=== PATIENT | female | born 1940 | race Caucasian/White ===

== ENCOUNTER → 2016-10-23 | Outpatient (CLI) | payer MEDICARE, OTHER ==
[~2016-10-23] MED LIST: ALBU8.5H5 INH; AMOX1TAB61 PO; BUDE10.2 INH; CALC-545 PO; CHOL20002 PO; DOCU-30 PO; DOXY100T PO; FAMO-79 PO; FLUO10CA7 PO; FURO-93 PO; LIDO700A5 TD; METF500T4 PO; METH500T97 PO; OMEP10CA4 PO; ONDA4TAB10 PO; POTA20PA PO; PRED10TA14 PO; SIMV20TA3 PO; TRAM-28 PO
[2016-10-23 13:05] LABS: PATH.CAST-FLAG NOT PRESENT; SPERM-FLAG NOT PRESENT; SRC-FLAG NOT PRESENT; XTAL-FLAG NOT PRESENT; YLC-FLAG NOT PRESENT
[2016-10-23 13:16] LABS: BLOOD UREA NITROGEN 20 mg/dL (7-18)
[2016-10-23 13:19] LABS: ASPARTATE AMINO TRANSFERASE 17 U/L (15-37)
== END | disposition home or self-care (01) ==
LOC: CFH 09:05
PROVIDERS: ATTEND Nurse Practitioner Primary Care
DX: M47.896 Other spondylosis, lumbar region (principal); M25.78 Osteophyte, vertebrae; M40.46 Postural lordosis, lumbar region
CPT/HCPCS: 36415; 72072; 72100; 80053; 81001; 82306; 85025; 87086

== ENCOUNTER → 2016-11-12 | Outpatient (CLI) | payer MEDICARE, OTHER | END | disposition home or self-care (01) | LOC: CFH 11:38 | PROVIDERS: ATTEND Nurse Practitioner Primary Care | DX: N39.0 Urinary tract infection, site not specified (principal) | CPT/HCPCS: 81003 ==

== ENCOUNTER → 2016-12-27 | Outpatient (CLI) | payer MEDICARE, OTHER | END | disposition home or self-care (01) | LOC: RAD 11:35 | PROVIDERS: ATTEND Nurse Practitioner Primary Care | DX: Z12.31 Encounter for screening mammogram for malignant neoplasm of breast (principal); M51.04 Intervertebral disc disorders with myelopathy, thoracic region; M43.8X4 Other specified deforming dorsopathies, thoracic region; M54.5 Low back pain; J92.9 Pleural plaque without asbestos | CPT/HCPCS: 72072; 72110; G0202 ==

== ENCOUNTER → 2017-02-21 | Outpatient (CLI) | payer MEDICARE, OTHER ==
[~2017-02-21] MED LIST changes: +DOCU-131 PO; -DOCU-30 PO; -TRAM-28 PO; +TRAM-47 PO
== END | disposition home or self-care (01) ==
LOC: CFH 10:21
PROVIDERS: ATTEND Nurse Practitioner Primary Care
DX: Z13.820 Encounter for screening for osteoporosis (principal); N95.9 Unspecified menopausal and perimenopausal disorder; E78.2 Mixed hyperlipidemia; E55.9 Vitamin D deficiency, unspecified; Z79.899 Other long term (current) drug therapy
CPT/HCPCS: 77080

== ENCOUNTER → 2017-05-12 | Outpatient (CLI) | payer MEDICARE, OTHER ==
[2017-05-12 13:32] LABS: BLOOD UREA NITROGEN 21 mg/dL (7-18)
[2017-05-12 13:35] LABS: ASPARTATE AMINO TRANSFERASE 16 U/L (15-37)
== END | disposition home or self-care (01) ==
LOC: LAB 08:33
PROVIDERS: ATTEND Internal Medicine
DX: Z00.01 Encounter for general adult medical examination with abnormal findings (principal); E61.1 Iron deficiency; R31.0 Gross hematuria; E78.2 Mixed hyperlipidemia; E55.9 Vitamin D deficiency, unspecified; R53.83 Other fatigue; R09.02 Hypoxemia; D72.819 Decreased white blood cell count, unspecified; R91.8 Other nonspecific abnormal finding of lung field; E88.81 Metabolic syndrome and other insulin resistance; F06.31 Mood disorder due to known physiological condition with depressive features; R01.1 Cardiac murmur, unspecified; M54.40 Lumbago with sciatica, unspecified side; M54.6 Pain in thoracic spine; M62.81 Muscle weakness (generalized); Z79.899 Other long term (current) drug therapy
CPT/HCPCS: 36415; 80053; 81001; 87077; 87086

== ENCOUNTER → 2017-06-03 | Outpatient (CLI) | payer MEDICARE, OTHER | LOC: CFH 09:22 | PROVIDERS: ATTEND Nurse Practitioner Primary Care | DX: Z02.9 Encounter for administrative examinations, unspecified (principal) ==

== ENCOUNTER → 2017-08-04 | Outpatient (CLI) | payer MEDICARE, OTHER ==
[2017-08-04 12:36] LABS: ALBUMIN 3.7 g/dL (3.4-5.0); ANION GAP 10 mmol/L (5-15); CALCIUM 9.2 mg/dL (8.5-10.1); CHLORIDE 102 mmol/L (98-107)
[2017-08-04 12:40] LABS: ALANINE AMINOTRANSFERASE 20 U/L (12-78); ALKALINE PHOSPHATASE 84 U/L (45-117); BILIRUBIN,TOTAL 0.8 mg/dL (0.2-1.0); CREATININE 1.05 mg/dL (0.55-1.02); TOTAL PROTEIN 7.6 g/dL (6.4-8.2)
[2017-08-04 12:41] LABS: CHOL/HDL RATIO 3.3; CHOLESTEROL, TOTAL 208 mg/dL (140-239); HDL CHOL % 30 % (28-40); HDL CHOLESTEROL (DIRECT) 63 mg/dL (40-60); LDL CHOLESTEROL,CALCULATED 109 mg/dL (54-169); LDL/HDL RATIO 1.7 (0.5-3.0); TRIGLYCERIDES 181 mg/dL (50-200); VLDL CHOLESTEROL 36 mg/dL (0-25)
[2017-08-06 12:35] LABS: MICROSCOPIC NOT IND
[2017-08-06 12:38] LABS: CULTURE INDICATED? NO
== END ==
LOC: CFH 10:29
PROVIDERS: ATTEND Nurse Practitioner Primary Care
DX: E61.1 Iron deficiency (principal); R31.0 Gross hematuria; E78.2 Mixed hyperlipidemia; E55.9 Vitamin D deficiency, unspecified; R53.83 Other fatigue; E87.2 Acidosis; D72.819 Decreased white blood cell count, unspecified; R91.8 Other nonspecific abnormal finding of lung field; E88.81 Metabolic syndrome and other insulin resistance; F06.31 Mood disorder due to known physiological condition with depressive features; R01.1 Cardiac murmur, unspecified; M54.40 Lumbago with sciatica, unspecified side; M54.6 Pain in thoracic spine; M62.81 Muscle weakness (generalized); Z79.899 Other long term (current) drug therapy
CPT/HCPCS: 36415; 80053; 80061; 81003; 82043; 82306; 82570

== ENCOUNTER → 2018-02-23 | Outpatient (CLI) | payer MEDICARE, OTHER ==
[~2018-02-23] MED LIST changes: -CHOL20002 PO; +CHOL200085 PO; +LISI5TAB7 PO; +METF500T17 PO; -METF500T4 PO; -POTA20PA PO; +POTA20PA31 PO; +SULF1TAB24 PO
[2018-02-23 15:55] LABS: BASOPHILS # (AUTO) 0.02 x10^3/uL (0-0.1); BASOPHILS % (AUTO) 0 % (0-1); EOSINOPHILS # (AUTO) 0.18 x10^3/uL (0-0.4); EOSINOPHILS % (AUTO) 3 % (1-7); LYMPHOCYTES # (AUTO) 1.76 x10^3/uL (1-3.4); LYMPHOCYTES % (AUTO) 25 % (22-44); MD NO; MEAN CORPUSCULAR HEMOGLOBIN 31.8 pg (27.0-34.8); MEAN CORPUSCULAR HGB CONC 33.3 g/dL (32.4-35.8); MEAN CORPUSCULAR VOLUME 95.7 fL (80-100); MONOCYTES # (AUTO) 0.36 x10^3/uL (0.2-0.8); MONOCYTES % (AUTO) 5 % (2-9); NEUTROPHILS # (AUTO) 4.82 x10^3/uL (1.8-6.8); NEUTROPHILS % (AUTO) 68 % (42-75); PLATELET COUNT 274 x10^3/uL (130-400); RED BLOOD COUNT 4.18 x10^6/uL (3.82-5.3); RED CELL DISTRIBUTION WIDTH 14.8 % (9.6-15.2)
[2018-02-23 15:58] LABS: CALCIUM 9.5 mg/dL (8.5-10.1); CHLORIDE 106 mmol/L (98-107)
[2018-02-23 16:03] LABS: CULTURE INDICATED? YES; MICROSCOPIC INDICATED
[2018-02-23 16:09] LABS: ALANINE AMINOTRANSFERASE 22 U/L (12-78); ALBUMIN 3.4 g/dL (3.4-5.0); ALKALINE PHOSPHATASE 119 U/L (45-117); ANION GAP 13 mmol/L (5-15); BILIRUBIN,TOTAL 0.6 mg/dL (0.2-1.0); CHOL/HDL RATIO 4.2; CHOLESTEROL, TOTAL 200 mg/dL (140-239); CREATININE 0.95 mg/dL (0.55-1.02); FREE T4 (FREE THYROXINE) 1.25 ng/dL (0.76-1.46); HDL CHOL % 24 % (28-40); HDL CHOLESTEROL (DIRECT) 48 mg/dL (40-60); LDL CHOLESTEROL,CALCULATED 114 mg/dL (54-169); LDL/HDL RATIO 2.4 (0.5-3.0); TOTAL PROTEIN 7.6 g/dL (6.4-8.2); TRIGLYCERIDES 189 mg/dL (50-200); VLDL CHOLESTEROL 38 mg/dL (0-25)
[2018-02-23 16:28] LABS: HEMOGLOBIN A1C 6.2 % (4.2-6.3)
== END | disposition home or self-care (01) ==
LOC: CFH 11:26
PROVIDERS: ATTEND Nurse Practitioner Primary Care
DX: E78.2 Mixed hyperlipidemia (principal); J44.9 Chronic obstructive pulmonary disease, unspecified; E11.9 Type 2 diabetes mellitus without complications; E61.1 Iron deficiency; R31.0 Gross hematuria; E55.9 Vitamin D deficiency, unspecified; R53.83 Other fatigue; R09.02 Hypoxemia; R91.8 Other nonspecific abnormal finding of lung field; D72.819 Decreased white blood cell count, unspecified; E88.81 Metabolic syndrome and other insulin resistance; F06.31 Mood disorder due to known physiological condition with depressive features; R01.1 Cardiac murmur, unspecified; M54.40 Lumbago with sciatica, unspecified side; M54.6 Pain in thoracic spine; M62.81 Muscle weakness (generalized); R79.9 Abnormal finding of blood chemistry, unspecified; Z79.899 Other long term (current) drug therapy
CPT/HCPCS: 36415; 80053; 80061; 81001; 82306; 83036; 84439; 84443; 84480; 85025; 87086

== ENCOUNTER 2018-03-04 11:27 | Inpatient (IN) | payer MEDICARE, OTHER ==
[~2018-03-04] VITALS: Ht 162.6 cm; Wt 82.5 kg
[~2018-03-04 11:27] MED LIST changes: -LISI5TAB7 PO; -SULF1TAB24 PO
[2018-03-04] MEDS ORDERED: SODIUM CHLORIDE FLUSH 10ML SYR IVF ONE (12:00)
[2018-03-04] MEDS ORDERED: SODIUM CHLORIDE 0.9% 1,000ML IVBOLUS ONE ×2 (12:00→13:00)
[2018-03-04 12:03] LABS: BASOPHILS # (AUTO) 0.05 x10^3/uL (0-0.1); BASOPHILS % (AUTO) 1 % (0-1); EOSINOPHILS # (AUTO) 0.18 x10^3/uL (0-0.4); EOSINOPHILS % (AUTO) 2 % (1-7); LYMPHOCYTES # (AUTO) 3.69 x10^3/uL (1-3.4); LYMPHOCYTES % (AUTO) 38 % (22-44); MD NO; MEAN CORPUSCULAR HEMOGLOBIN 31.4 pg (27.0-34.8); MEAN CORPUSCULAR HGB CONC 33.1 g/dL (32.4-35.8); MEAN CORPUSCULAR VOLUME 95.1 fL (80-100); MEAN PLATELET VOLUME 7.5 fL (7.4-10.4); MONOCYTES # (AUTO) 0.14 x10^3/uL (0.2-0.8); MONOCYTES % (AUTO) 1 % (2-9); NEUTROPHILS # (AUTO) 5.74 x10^3/uL (1.8-6.8); NEUTROPHILS % (AUTO) 59 % (42-75); PLATELET COUNT 267 x10^3/uL (130-400); RED CELL DISTRIBUTION WIDTH 15.1 % (9.6-15.2)
[2018-03-04] MEDS ORDERED: LISI5TAB7 PO (12:12)
[2018-03-04] MEDS ORDERED: FURO-93 PO (12:12)
[2018-03-04 12:15] LABS: ALANINE AMINOTRANSFERASE 20 U/L (12-78); ALBUMIN 3.3 g/dL (3.4-5.0); ANION GAP 17 mmol/L (5-15); CALCIUM 8.9 mg/dL (8.5-10.1); CHLORIDE 103 mmol/L (98-107); CREATININE 1.28 mg/dL (0.55-1.02); PROTHROMBIN TIME 10.3 Seconds (9.6-11.5)
[2018-03-04 12:19] LABS: ALKALINE PHOSPHATASE 114 U/L (45-117); BILIRUBIN,TOTAL 0.7 mg/dL (0.2-1.0); TOTAL PROTEIN 7.6 g/dL (6.4-8.2); TROPONIN I < 0.015 ng/mL (0.000-0.045)
[2018-03-04 12:41] LABS: PH, VENOUS 7.321 pH (7.320-7.420)
[2018-03-04 12:42] LABS: O2 FLOW 3.5 L/min
[2018-03-04] MEDS ORDERED: ONDANSETRON 2MG/ML, 2ML IVPush ONE (13:00)
[2018-03-04] MEDS ORDERED: ONDANSETRON 2MG/ML, 2ML ONE (13:03)
[2018-03-04 13:27] LABS: MICROSCOPIC INDICATED
[2018-03-04] MEDS ORDERED: SODIUM CHLORIDE 0.9% 1,000 ML IV ONE (13:43)
[2018-03-04 13:50] LABS: CULTURE INDICATED? NO
[2018-03-04 13:57] LABS: FREE T4 (FREE THYROXINE) 1.31 ng/dL (0.76-1.46); THYROID STIMULATING HORMONE 6.28 mIU/L (0.358-3.740)
[2018-03-04] MEDS ORDERED: SULF1TAB24 PO (14:58)
[2018-03-04] MEDS ORDERED: SODIUM CHLORIDE FLUSH 10ML SYR IVF PRN (16:00)
[2018-03-04] MEDS ORDERED: hydrALAzine 20 MG/ML, 1ML IVPush PRN (16:30)
[2018-03-04] MEDS ORDERED: ACETAMINOPHEN 325 MG TABLET PO PRN (16:30)
[2018-03-04] MEDS ORDERED: DOCUSATE 100 MG CAPSULE PO PRN (16:30)
[2018-03-04] MEDS ORDERED: POLYETHYLENE GLYCOL 17 GM PACKET PO PRN (16:30)
[2018-03-04] MEDS ORDERED: BISACODYL 10 MG SUPP PR PRN (16:30)
[2018-03-04 16:51] LABS: HEMOGRAM NOTE RECHECKED; MEAN CORPUSCULAR HEMOGLOBIN 32.1 pg (27.0-34.8); MEAN CORPUSCULAR HGB CONC 33.8 g/dL (32.4-35.8); MEAN CORPUSCULAR VOLUME 94.9 fL (80-100); MEAN PLATELET VOLUME 7.5 fL (7.4-10.4); PLATELET COUNT 190 x10^3/uL (130-400); RED BLOOD COUNT 3.44 x10^6/uL (3.82-5.3); RED CELL DISTRIBUTION WIDTH 14.5 % (9.6-15.2)
[2018-03-04] MEDS ORDERED: GLUCAGON 1 MG IM PRN (17:00)
[2018-03-04] MEDS ORDERED: ALBUTEROL SULFATE 2.5 MG/3 ML NPPB PRN ×3 (17:00→21:30)
[2018-03-04] MEDS: CALCIUM/VITAMIN D3 250-125 TABLET PO SCH ×2 (17:00→21:53)
[2018-03-04] MEDS ORDERED: DEXTROSE 4 GM TAB.CHEW PO PRN (17:00)
[2018-03-04] MEDS ORDERED: DEXTROSE 50%, 50ML SYRINGE IVPush PRN (17:00)
[2018-03-04 17:05] LABS: MD YES
[2018-03-04 17:07] LABS: BAND#(MANUAL) 0.19 x10^3/uL; BANDS%(MANUAL) 2 % (0-7); LYMPH#(MANUAL) 0.67 x10^3/uL (1-3.4); LYMPHS% (MANUAL) 7 % (22-44); MONOS#(MANUAL) 0.67 x10^3/uL (0.3-2.7); MONOS% (MANUAL) 7 % (2-9); SEG#(MANUAL) 8.06 x10^3/uL (1.8-6.8); SEGS% (MANUAL) 84 % (42-75)
[2018-03-04 17:08] LABS: <PLATELET ESTIMATE> ADEQUATE; <PLT MORPHOLOGY> NORMAL PLT MORPH; <RBC MORPHOLOGY> NORMAL
[2018-03-04 17:19] LABS: HEMOGLOBIN A1C 5.8 % (4.2-6.3)
[2018-03-04 17:28] LABS: TROPONIN I 0.411 ng/mL (0.000-0.045)
[2018-03-04 17:58] VITALS: BP 93/56
[2018-03-04] MEDS: SODIUM CHLORIDE 0.9% 1,000 ML IV SCH ×2 (18:04→22:54)
[2018-03-04 19:08] VITALS: BP 102/59
[2018-03-04] MEDS ORDERED: CEFTRIAXONE 1,000 MG in SODIUM CHLORIDE 0.9% 50 ML IV SCH (19:30)
[2018-03-04] MEDS: INSULIN LISPRO 100 UNITS/ML, PEN SQ-INSULIN SCH (21:00)
[2018-03-04] MEDS ORDERED: SULFAMETH./TRIMETHOPRIM DS 800MG/160MG TABLET PO SCH (21:00)
[2018-03-04] MEDS: DOXYCYCLINE 100 MG in DEXTROSE 5% 250 ML IV SCH (22:53)
[2018-03-04] MEDS: SODIUM CHLORIDE FLUSH 10ML SYR IVF SCH (22:53)
[2018-03-05 01:27] VITALS: BP 91/59
[2018-03-05] MEDS: SODIUM CHLORIDE 0.9% 1,000 ML IV SCH ×4 (02:14→23:18)
[2018-03-05 06:01] LABS: ALANINE AMINOTRANSFERASE 14 U/L (12-78); ALBUMIN 2.5 g/dL (3.4-5.0); ANION GAP 8 mmol/L (5-15); CALCIUM 7.7 mg/dL (8.5-10.1); CHLORIDE 112 mmol/L (98-107); CREATININE 0.83 mg/dL (0.55-1.02)
[2018-03-05 06:03] LABS: ALKALINE PHOSPHATASE 77 U/L (45-117); BILIRUBIN,TOTAL 0.4 mg/dL (0.2-1.0); TOTAL PROTEIN 5.6 g/dL (6.4-8.2)
[2018-03-05] MEDS ORDERED: POTASSIUM CHLORIDE 40 MEQ in SODIUM CHLORIDE 0.9% 500 ML IV ONE (07:00)
[2018-03-05] MEDS: INSULIN LISPRO 100 UNITS/ML, PEN SQ-INSULIN SCH ×4 (07:00→20:26)
[2018-03-05 07:59] VITALS: BP 93/51
[2018-03-05] MEDS: CALCIUM/VITAMIN D3 250-125 TABLET PO SCH ×3 (09:09→20:22)
[2018-03-05] MEDS: SODIUM CHLORIDE FLUSH 10ML SYR IVF SCH ×2 (09:09→20:21)
[2018-03-05] MEDS: DOXYCYCLINE 100 MG in DEXTROSE 5% 250 ML IV SCH (09:09)
[2018-03-05] MEDS: CHOLECALCIFEROL 400 UNITS TABLET PO SCH (09:09)
[2018-03-05 10:14] VITALS: BP 94/46
[2018-03-05 12:34] VITALS: BP 101/50
[2018-03-05] MEDS ORDERED: AZITHROMYCIN 500 MG in DEXTROSE 5% 250 ML IV SCH (13:00)
[2018-03-05 14:01] LABS: BASOPHILS # (AUTO) 0.02 x10^3/uL (0-0.1); BASOPHILS % (AUTO) 0 % (0-1); EOSINOPHILS # (AUTO) 0.18 x10^3/uL (0-0.4); EOSINOPHILS % (AUTO) 3 % (1-7); LYMPHOCYTES # (AUTO) 1.15 x10^3/uL (1-3.4); LYMPHOCYTES % (AUTO) 19 % (22-44); MD NO; MEAN CORPUSCULAR HEMOGLOBIN 31.6 pg (27.0-34.8); MEAN CORPUSCULAR HGB CONC 33.3 g/dL (32.4-35.8); MEAN PLATELET VOLUME 7.4 fL (7.4-10.4); MONOCYTES # (AUTO) 0.28 x10^3/uL (0.2-0.8); MONOCYTES % (AUTO) 5 % (2-9); NEUTROPHILS # (AUTO) 4.52 x10^3/uL (1.8-6.8); NEUTROPHILS % (AUTO) 74 % (42-75); PLATELET COUNT 178 x10^3/uL (130-400); RED BLOOD COUNT 3.21 x10^6/uL (3.82-5.3); RED CELL DISTRIBUTION WIDTH 15.2 % (9.6-15.2)
[2018-03-05] MEDS: HEPARIN 5,000 UNITS/ML, 1ML SQ SCH ×2 (17:05→23:15)
[2018-03-05 17:10] VITALS: BP 96/56
[2018-03-05 19:03] VITALS: BP 109/65
[2018-03-05] MEDS ORDERED: CEFTRIAXONE PMX 1GM/50ML 50 ML IV SCH (19:30)
[2018-03-05] MEDS: ATORVASTATIN 40 MG TABLET PO SCH (20:21)
[2018-03-05] MEDS: CEFTRIAXONE PMX 1GM/50ML 50 ML IV SCH (20:21)
[2018-03-06 00:23] VITALS: BP 96/60
[2018-03-06] MEDS: SODIUM CHLORIDE 0.9% 1,000 ML IV SCH (05:14)
[2018-03-06 06:44] LABS: BASOPHILS # (AUTO) 0.01 x10^3/uL (0-0.1); BASOPHILS % (AUTO) 0 % (0-1); EOSINOPHILS # (AUTO) 0.01 x10^3/uL (0-0.4); EOSINOPHILS % (AUTO) 0 % (1-7); LYMPHOCYTES # (AUTO) 0.49 x10^3/uL (1-3.4); LYMPHOCYTES % (AUTO) 13 % (22-44); MD NO; MEAN CORPUSCULAR HEMOGLOBIN 32.4 pg (27.0-34.8); MEAN CORPUSCULAR HGB CONC 33.9 g/dL (32.4-35.8); MEAN CORPUSCULAR VOLUME 95.6 fL (80-100); MEAN PLATELET VOLUME 7.5 fL (7.4-10.4); MONOCYTES # (AUTO) 0.06 x10^3/uL (0.2-0.8); MONOCYTES % (AUTO) 2 % (2-9); NEUTROPHILS % (AUTO) 84 % (42-75); PLATELET COUNT 138 x10^3/uL (130-400); RED BLOOD COUNT 2.82 x10^6/uL (3.82-5.3); RED CELL DISTRIBUTION WIDTH 15.1 % (9.6-15.2)
[2018-03-06 06:52] LABS: ALBUMIN 2.3 g/dL (3.4-5.0); ANION GAP 10 mmol/L (5-15); CALCIUM 8.2 mg/dL (8.5-10.1); CHLORIDE 115 mmol/L (98-107)
[2018-03-06] MEDS: INSULIN LISPRO 100 UNITS/ML, PEN SQ-INSULIN SCH ×4 (07:00→20:48)
[2018-03-06 07:15] VITALS: BP 101/63
[2018-03-06] MEDS: CALCIUM/VITAMIN D3 250-125 TABLET PO SCH ×3 (08:11→20:46)
[2018-03-06] MEDS: CHOLECALCIFEROL 400 UNITS TABLET PO SCH (08:11)
[2018-03-06] MEDS: HEPARIN 5,000 UNITS/ML, 1ML SQ SCH ×3 (08:11→23:37)
[2018-03-06] MEDS: SODIUM CHLORIDE FLUSH 10ML SYR IVF SCH ×2 (09:00→20:47)
[2018-03-06] MEDS ORDERED: SODIUM CHLORIDE 0.45% 1,000 ML IV SCH (10:00)
[2018-03-06 13:00] VITALS: BP 94/54
[2018-03-06] MEDS: AZITHROMYCIN 500 MG in SODIUM CHLORIDE 0.9% 250 ML IV SCH (13:06)
[2018-03-06] MEDS ORDERED: OMNIPAQUE 350 MG/ML, 100ML BOTTLE ONE (18:00)
[2018-03-06 18:42] VITALS: BP 94/53
[2018-03-06] MEDS: ATORVASTATIN 40 MG TABLET PO SCH (20:46)
[2018-03-06] MEDS: CEFTRIAXONE PMX 1GM/50ML 50 ML IV SCH (20:46)
[2018-03-06 20:59] VITALS: BP 115/68
[2018-03-07 01:54] VITALS: BP 97/59
[2018-03-07 06:13] LABS: BASOPHILS # (AUTO) 0.02 x10^3/uL (0-0.1); BASOPHILS % (AUTO) 1 % (0-1); EOSINOPHILS % (AUTO) 4 % (1-7); LYMPHOCYTES % (AUTO) 26 % (22-44); MD NO; MEAN CORPUSCULAR HEMOGLOBIN 32.2 pg (27.0-34.8); MEAN CORPUSCULAR HGB CONC 33.4 g/dL (32.4-35.8); MEAN CORPUSCULAR VOLUME 96.3 fL (80-100); MEAN PLATELET VOLUME 7.7 fL (7.4-10.4); MONOCYTES # (AUTO) 0.37 x10^3/uL (0.2-0.8); MONOCYTES % (AUTO) 8 % (2-9); NEUTROPHILS # (AUTO) 3.03 x10^3/uL (1.8-6.8); NEUTROPHILS % (AUTO) 62 % (42-75); PLATELET COUNT 141 x10^3/uL (130-400); RED BLOOD COUNT 2.86 x10^6/uL (3.82-5.3); RED CELL DISTRIBUTION WIDTH 15.2 % (9.6-15.2)
[2018-03-07 06:18] LABS: ALBUMIN 2.3 g/dL (3.4-5.0); ANION GAP 7 mmol/L (5-15); CALCIUM 8.6 mg/dL (8.5-10.1); CHLORIDE 114 mmol/L (98-107); CREATININE 0.68 mg/dL (0.55-1.02)
[2018-03-07] MEDS: INSULIN LISPRO 100 UNITS/ML, PEN SQ-INSULIN SCH ×5 (07:00→20:16)
[2018-03-07 08:12] LABS: TROPONIN I 0.047 ng/mL (0.000-0.045)
[2018-03-07] MEDS: HEPARIN 5,000 UNITS/ML, 1ML SQ SCH ×3 (08:53→23:40)
[2018-03-07] MEDS: CHOLECALCIFEROL 400 UNITS TABLET PO SCH (08:53)
[2018-03-07] MEDS: methylPREDNISolone SOD SUCC 125 MG/2 ML IVPush SCH ×3 (08:53→23:40)
[2018-03-07] MEDS: CALCIUM/VITAMIN D3 250-125 TABLET PO SCH ×3 (08:53→20:11)
[2018-03-07] MEDS: SODIUM CHLORIDE FLUSH 10ML SYR IVF SCH ×2 (09:00→20:03)
[2018-03-07 09:05] VITALS: BP 107/64
[2018-03-07] MEDS: SODIUM CHLORIDE 0.45% 1,000 ML IV SCH ×2 (10:00→20:00)
[2018-03-07] MEDS ORDERED: REGADENOSON 0.4 MG/5 ML SYRINGE ONE (10:24)
[2018-03-07 12:15] VITALS: BP 118/63
[2018-03-07] MEDS: AZITHROMYCIN 500 MG in SODIUM CHLORIDE 0.9% 250 ML IV SCH (13:39)
[2018-03-07 19:18] VITALS: BP 108/68
[2018-03-07] MEDS: ATORVASTATIN 40 MG TABLET PO SCH (20:11)
[2018-03-07] MEDS: CEFTRIAXONE PMX 1GM/50ML 50 ML IV SCH (20:12)
[2018-03-08 00:16] VITALS: BP 120/79
[2018-03-08 05:26] LABS: BASOPHILS # (AUTO) 0.01 x10^3/uL (0-0.1); BASOPHILS % (AUTO) 0 % (0-1); EOSINOPHILS % (AUTO) 0 % (1-7); LYMPHOCYTES # (AUTO) 0.37 x10^3/uL (1-3.4); LYMPHOCYTES % (AUTO) 10 % (22-44); MD NO; MEAN CORPUSCULAR HEMOGLOBIN 32.1 pg (27.0-34.8); MEAN CORPUSCULAR HGB CONC 33.6 g/dL (32.4-35.8); MEAN CORPUSCULAR VOLUME 95.7 fL (80-100); MONOCYTES # (AUTO) 0.04 x10^3/uL (0.2-0.8); MONOCYTES % (AUTO) 1 % (2-9); NEUTROPHILS # (AUTO) 3.43 x10^3/uL (1.8-6.8); NEUTROPHILS % (AUTO) 89 % (42-75); PLATELET COUNT 158 x10^3/uL (130-400); RED BLOOD COUNT 3.02 x10^6/uL (3.82-5.3); RED CELL DISTRIBUTION WIDTH 14.8 % (9.6-15.2)
[2018-03-08 05:30] LABS: ALBUMIN 2.4 g/dL (3.4-5.0); ANION GAP 8 mmol/L (5-15); CALCIUM 8.7 mg/dL (8.5-10.1); CHLORIDE 112 mmol/L (98-107); CREATININE 0.76 mg/dL (0.55-1.02)
[2018-03-08] MEDS: SODIUM CHLORIDE 0.45% 1,000 ML IV SCH (06:00)
[2018-03-08 06:57] VITALS: BP 118/61
[2018-03-08] MEDS: ASPIRIN 81 MG TABLET EC PO SCH (08:11)
[2018-03-08] MEDS: CHOLECALCIFEROL 400 UNITS TABLET PO SCH (08:11)
[2018-03-08] MEDS: HEPARIN 5,000 UNITS/ML, 1ML SQ SCH ×2 (08:12→17:08)
[2018-03-08] MEDS: CALCIUM/VITAMIN D3 250-125 TABLET PO SCH ×3 (08:12→20:38)
[2018-03-08] MEDS: INSULIN LISPRO 100 UNITS/ML, PEN SQ-INSULIN SCH ×5 (08:13→21:02)
[2018-03-08] MEDS: SODIUM CHLORIDE FLUSH 10ML SYR IVF SCH ×2 (09:00→20:37)
[2018-03-08] MEDS: AZITHROMYCIN 500 MG in SODIUM CHLORIDE 0.9% 250 ML IV SCH (12:39)
[2018-03-08 14:00] VITALS: BP 114/72
[2018-03-08] MEDS: ATORVASTATIN 40 MG TABLET PO SCH (20:38)
[2018-03-08] MEDS: CEFTRIAXONE PMX 1GM/50ML 50 ML IV SCH (20:38)
[2018-03-08 20:40] VITALS: BP 109/71
[2018-03-09 01:04] VITALS: BP 105/64
[2018-03-09] MEDS: HEPARIN 5,000 UNITS/ML, 1ML SQ SCH ×2 (01:09→09:05)
[2018-03-09 06:52] LABS: BASOPHILS # (AUTO) 0.01 x10^3/uL (0-0.1); BASOPHILS % (AUTO) 0 % (0-1); EOSINOPHILS % (AUTO) 0 % (1-7); LYMPHOCYTES # (AUTO) 0.99 x10^3/uL (1-3.4); LYMPHOCYTES % (AUTO) 14 % (22-44); MD NO; MEAN CORPUSCULAR HEMOGLOBIN 32.2 pg (27.0-34.8); MEAN CORPUSCULAR HGB CONC 33.5 g/dL (32.4-35.8); MEAN CORPUSCULAR VOLUME 96.1 fL (80-100); MEAN PLATELET VOLUME 7.8 fL (7.4-10.4); MONOCYTES # (AUTO) 0.56 x10^3/uL (0.2-0.8); MONOCYTES % (AUTO) 8 % (2-9); NEUTROPHILS # (AUTO) 5.36 x10^3/uL (1.8-6.8); NEUTROPHILS % (AUTO) 78 % (42-75); PLATELET COUNT 174 x10^3/uL (130-400); RED BLOOD COUNT 2.84 x10^6/uL (3.82-5.3); RED CELL DISTRIBUTION WIDTH 15.4 % (9.6-15.2)
[2018-03-09] MEDS: INSULIN LISPRO 100 UNITS/ML, PEN SQ-INSULIN SCH ×2 (07:00→10:58)
[2018-03-09 07:04] LABS: ALBUMIN 2.4 g/dL (3.4-5.0); ANION GAP 7 mmol/L (5-15); CHLORIDE 112 mmol/L (98-107); CREATININE 0.64 mg/dL (0.55-1.02)
[2018-03-09 07:20] VITALS: BP 117/72
[2018-03-09] MEDS: SODIUM CHLORIDE FLUSH 10ML SYR IVF SCH (09:00)
[2018-03-09] MEDS: CHOLECALCIFEROL 400 UNITS TABLET PO SCH (09:05)
[2018-03-09] MEDS: CALCIUM/VITAMIN D3 250-125 TABLET PO SCH (09:06)
[2018-03-09] MEDS: ASPIRIN 81 MG TABLET EC PO SCH (09:06)
[2018-03-09 13:00] VITALS: BP 111/67
[2018-03-09] MEDS: AZITHROMYCIN 500 MG in SODIUM CHLORIDE 0.9% 250 ML IV SCH (13:02)
[2018-03-09] MEDS ORDERED: AZIT500T5 PO (14:11)
[2018-03-09] MEDS ORDERED: ATOR40TA78 PO (14:11)
[2018-03-09] MEDS ORDERED: PRED5TAB PO (14:11)
[2018-03-09] MEDS ORDERED: CEFD300C37 PO (14:11)
== END 2018-03-09 16:29 | DRG 682 ==
LOC: ED 11:56 → EDIP 15:55 → 5SO 17:36
PROVIDERS: ADMIT Hospitalist; ATTEND Family Medicine
PROC: 02HV33Z Insertion of Infusion Device into Superior Vena Cava, Percutaneous Approach (ICD-10-PCS; principal; 2018-03-04)
PROC: B548ZZA Ultrasonography of Superior Vena Cava, Guidance (ICD-10-PCS; 2018-03-04)
PROC: 0T9B70Z Drainage of Bladder with Drainage Device, Via Natural or Artificial Opening (ICD-10-PCS; 2018-03-04)
DX: N17.9 Acute kidney failure, unspecified (principal); J96.21 Acute and chronic respiratory failure with hypoxia; J84.9 Interstitial pulmonary disease, unspecified; E87.2 Acidosis; I24.8 Other forms of acute ischemic heart disease; I95.2 Hypotension due to drugs; T38.0X5A Adverse effect of glucocorticoids and synthetic analogues, initial encounter; D64.9 Anemia, unspecified; E11.9 Type 2 diabetes mellitus without complications; E86.0 Dehydration; G47.33 Obstructive sleep apnea (adult) (pediatric); I65.23 Occlusion and stenosis of bilateral carotid arteries; J44.9 Chronic obstructive pulmonary disease, unspecified; I10 Essential (primary) hypertension; R53.81 Other malaise; G31.9 Degenerative disease of nervous system, unspecified; R91.1 Solitary pulmonary nodule; G89.29 Other chronic pain; M54.9 Dorsalgia, unspecified; K21.9 Gastro-esophageal reflux disease without esophagitis; M81.0 Age-related osteoporosis without current pathological fracture; Z66 Do not resuscitate; Z79.52 Long term (current) use of systemic steroids; Z82.49 Family history of ischemic heart disease and other diseases of the circulatory system; Z87.440 Personal history of urinary (tract) infections; Z90.49 Acquired absence of other specified parts of digestive tract; Z98.51 Tubal ligation status; Z90.89 Acquired absence of other organs; Y92.89 Other specified places as the place of occurrence of the external cause; Z79.84 Long term (current) use of oral hypoglycemic drugs; I95.89 Other hypotension
CPT/HCPCS: 36415; 36556; 70450; 70551; 71045; 71250; 71275; 78452; 80048; 80053; 81001; 82040; 82140; 82533; 82803; 82962; 83036; 83605; 83735; 84100; 84439; 84443; 84484; 85025; 85610; 85730; 87040; 93005; 93017; 93306; 93880; 94640; 96361; 96374; 99291; G0378; J0456; J0696; J1644; J2405; J2785; J3480; J7060; J7613; Q9967; A9502; C9898; J1815; J2930; J7030; J7040; J7050; J7512

== ENCOUNTER 2018-03-25 08:17 | Emergency (ER) | payer MEDICARE, OTHER ==
[~2018-03-25] VITALS: Ht 167.6 cm; Wt 55.0 kg
[~2018-03-25 08:17] MED LIST changes: +ATOR40TA78 PO; +AZIT500T5 PO; +CEFD300C37 PO; +LISI5TAB7 PO; +PRED5TAB PO; +SULF1TAB24 PO
[2018-03-25 09:44] VITALS: BP 126/82
== END 2018-03-25 11:44 | disposition home or self-care (01) ==
LOC: ED 09:00
DX: S82.65XA Nondisplaced fracture of lateral malleolus of left fibula, initial encounter for closed fracture (principal); I10 Essential (primary) hypertension; E11.9 Type 2 diabetes mellitus without complications; J44.9 Chronic obstructive pulmonary disease, unspecified; Z90.89 Acquired absence of other organs; Z88.6 Allergy status to analgesic agent; X50.1XXA Overexertion from prolonged static or awkward postures, initial encounter; Y93.89 Activity, other specified; Y92.129 Unspecified place in nursing home as the place of occurrence of the external cause; Y99.8 Other external cause status
CPT/HCPCS: 29515; 99284

== ENCOUNTER → 2018-07-10 | Outpatient (CLI) | payer MEDICARE, OTHER ==
[~2018-07-10] MED LIST changes: +CHOL20002 PO; -CHOL200085 PO
[2018-07-10 12:41] LABS: BASOPHILS # (AUTO) 0.01 x10^3/uL (0-0.1); BASOPHILS % (AUTO) 0 % (0-1); EOSINOPHILS # (AUTO) 0.49 x10^3/uL (0-0.4); EOSINOPHILS % (AUTO) 8 % (1-7); LYMPHOCYTES # (AUTO) 1.09 x10^3/uL (1-3.4); LYMPHOCYTES % (AUTO) 17 % (22-44); MD NO; MEAN CORPUSCULAR HEMOGLOBIN 31.6 pg (27.0-34.8); MEAN CORPUSCULAR HGB CONC 33.2 g/dL (32.4-35.8); MEAN CORPUSCULAR VOLUME 95.3 fL (80-100); MEAN PLATELET VOLUME 8.1 fL (7.4-10.4); MONOCYTES # (AUTO) 0.44 x10^3/uL (0.2-0.8); MONOCYTES % (AUTO) 7 % (2-9); NEUTROPHILS # (AUTO) 4.56 x10^3/uL (1.8-6.8); NEUTROPHILS % (AUTO) 69 % (42-75); PLATELET COUNT 206 x10^3/uL (130-400); RED BLOOD COUNT 4.04 x10^6/uL (3.82-5.3); RED CELL DISTRIBUTION WIDTH 15.5 % (9.6-15.2)
[2018-07-10 12:56] LABS: CULTURE INDICATED? YES; MICROSCOPIC INDICATED
[2018-07-10 13:31] LABS: CHLORIDE 107 mmol/L (98-107); CHOLESTEROL, TOTAL 132 mg/dL (140-239)
[2018-07-10 14:04] LABS: % IRON SATURATION 19 % (20-55); ALANINE AMINOTRANSFERASE 17 U/L (12-78); ALKALINE PHOSPHATASE 88 U/L (45-117); ANION GAP 7 mmol/L (5-15); BILIRUBIN,TOTAL 0.4 mg/dL (0.2-1.0); CHOL/HDL RATIO 2.8; CREATININE 0.82 mg/dL (0.55-1.02); HDL CHOL % 36 % (28-40); HDL CHOLESTEROL (DIRECT) 48 mg/dL (40-60); IRON LEVEL 56 mcg/dL (50-170); LDL CHOLESTEROL,CALCULATED 58 mg/dL (54-169); LDL/HDL RATIO 1.2 (0.5-3.0); TOTAL IRON BINDING CAPACITY 295 mcg/dL (250-450); TOTAL PROTEIN 7.3 g/dL (6.4-8.2); TRANSFERRIN 240 mg/dL (200-360); TRIGLYCERIDES 130 mg/dL (50-200); VLDL CHOLESTEROL 26 mg/dL (0-25)
== END | disposition home or self-care (01) ==
LOC: CFH 09:21
PROVIDERS: ATTEND Nurse Practitioner Primary Care
DX: E61.1 Iron deficiency (principal); E78.2 Mixed hyperlipidemia; E55.9 Vitamin D deficiency, unspecified; D72.819 Decreased white blood cell count, unspecified; R91.8 Other nonspecific abnormal finding of lung field; E88.81 Metabolic syndrome and other insulin resistance; F06.31 Mood disorder due to known physiological condition with depressive features; M54.40 Lumbago with sciatica, unspecified side; M54.6 Pain in thoracic spine; M62.81 Muscle weakness (generalized); R79.9 Abnormal finding of blood chemistry, unspecified; R01.1 Cardiac murmur, unspecified; Z79.899 Other long term (current) drug therapy
CPT/HCPCS: 36415; 80053; 80061; 81001; 82306; 82607; 82728; 83036; 83540; 83550; 84100; 84207; 84425; 84439; 84443; 84466; 84481; 85025; 87086

== ENCOUNTER 2018-08-13 13:17 | Inpatient (IN) | payer MEDICARE, OTHER ==
[~2018-08-13] VITALS: Ht 162.6 cm; Wt 74.2 kg
--- NOTE | 2018-08-13 13:40 | NUR ---
Pt BIB EMS from home in [place] for cough and increasing SOB. Per EMS pt has broken R ankle from last week. Seen at [place] at that time. Has mostly been bedbound the last week with increasing cough and SOB. Pt alert to name and location only. CMS intact x4. 95% on 4L NC, normally on 2L. Per EMS, pt was 89% on 2L. Nad at this time.
--- NOTE | 2018-08-13 13:57 | NUR ---
LABS/IV - US DELAY
[2018-08-13] MEDS ORDERED: SODIUM CHLORIDE FLUSH 10ML SYR IVF ONE (14:00)
[2018-08-13 14:18] LABS: BASOPHILS # (AUTO) 0.01 x10^3/uL (0-0.1); BASOPHILS % (AUTO) 0 % (0-1); EOSINOPHILS # (AUTO) 0.45 x10^3/uL (0-0.4); EOSINOPHILS % (AUTO) 6 % (1-7); LYMPHOCYTES # (AUTO) 1.48 x10^3/uL (1-3.4); LYMPHOCYTES % (AUTO) 20 % (22-44); MD NO; MEAN CORPUSCULAR HEMOGLOBIN 32.3 pg (27.0-34.8); MEAN CORPUSCULAR HGB CONC 32.9 g/dL (32.4-35.8); MEAN CORPUSCULAR VOLUME 98.1 fL (80-100); MEAN PLATELET VOLUME 7.2 fL (7.4-10.4); MONOCYTES # (AUTO) 0.53 x10^3/uL (0.2-0.8); MONOCYTES % (AUTO) 7 % (2-9); NEUTROPHILS # (AUTO) 4.81 x10^3/uL (1.8-6.8); NEUTROPHILS % (AUTO) 66 % (42-75); PLATELET COUNT 280 x10^3/uL (130-400); RED BLOOD COUNT 3.74 x10^6/uL (3.82-5.3); RED CELL DISTRIBUTION WIDTH 17.6 % (9.6-15.2)
[2018-08-13 14:26] LABS: INTERNATIONAL NORMALIZED RATIO 0.95 (0.93-1.1)
[2018-08-13 14:29] LABS: ALANINE AMINOTRANSFERASE 13 U/L (12-78); ALBUMIN 2.9 g/dL (3.4-5.0); ANION GAP 7 mmol/L (5-15); CALCIUM 8.6 mg/dL (8.5-10.1); CHLORIDE 107 mmol/L (98-107); CREATININE 1.07 mg/dL (0.55-1.02)
[2018-08-13 14:33] LABS: ALKALINE PHOSPHATASE 118 U/L (45-117); BILIRUBIN,TOTAL 0.4 mg/dL (0.2-1.0); TOTAL PROTEIN 7.3 g/dL (6.4-8.2)
[2018-08-13] MEDS ORDERED: SODIUM CHLORIDE FLUSH 10ML SYR IVF PRN (15:30)
--- NOTE | 2018-08-13 15:47 | NUR ---
Patient voided approximately 150mL concentrated, cloudy urine. Cleaned and repositioend for comfort.
[2018-08-13] MEDS ORDERED: KETOROLAC 30 MG/1 ML IV PRN (16:30)
[2018-08-13] MEDS ORDERED: ONDANSETRON 2MG/ML, 2ML IVPush PRN (16:30)
[2018-08-13] MEDS ORDERED: hydrALAzine 20 MG/ML, 1ML IVPush PRN (16:30)
[2018-08-13] MEDS ORDERED: LABETALOL 5MG/ML, 20ML IVPush PRN (16:30)
[2018-08-13] MEDS ORDERED: ZOLPIDEM 5MG TABLET PO PRN (16:30)
[2018-08-13] MEDS ORDERED: DOCUSATE 100 MG CAPSULE PO PRN (16:30)
[2018-08-13] MEDS ORDERED: POLYETHYLENE GLYCOL 17 GM PACKET PO PRN (16:30)
[2018-08-13] MEDS ORDERED: ONDANSETRON ODT 4 MG PO PRN (16:30)
[2018-08-13] MEDS ORDERED: GUAIFENESIN/DM 200-20MG, 10ML UDC PO PRN (16:30)
[2018-08-13] MEDS ORDERED: BISACODYL 10 MG SUPP PR PRN (16:30)
[2018-08-13 17:25] LABS: TROPONIN I < 0.015 ng/mL (0.000-0.045)
[2018-08-13 17:37] VITALS: BP 97/56
[2018-08-13 17:41] LABS: HEMOGLOBIN A1C 5.8 % (4.2-6.3)
[2018-08-13] MEDS: HEPARIN 5,000 UNITS/ML, 1ML SQ SCH (18:02)
[2018-08-13] MEDS: LACTATED RINGERS 1,000 ML IV SCH (18:03)
[2018-08-13] MEDS: methylPREDNISolone SOD SUCC 40 MG/ML IVPush SCH (18:03)
[2018-08-13 18:04] LABS: HCT (SEDRATE) 36.7 % (34.6-47.8)
[2018-08-13 20:33] VITALS: BP 126/74
[2018-08-13] MEDS: INSULIN LISPRO 100 UNITS/ML, PEN SQ-INSULIN SCH (21:05)
[2018-08-13 23:34] LABS: TROPONIN I < 0.015 ng/mL (0.000-0.045)
[2018-08-14] MEDS ORDERED: ALBUTEROL SULFATE 2.5 MG/3 ML NPPB PRN
[2018-08-14] MEDS: HEPARIN 5,000 UNITS/ML, 1ML SQ SCH ×3 (00:23→16:56)
[2018-08-14] MEDS: methylPREDNISolone SOD SUCC 40 MG/ML IVPush SCH ×4 (00:24→18:33)
[2018-08-14 01:39] VITALS: BP 128/71
[2018-08-14] MEDS: LACTATED RINGERS 1,000 ML IV SCH ×3 (02:20→21:30)
[2018-08-14 02:44] LABS: MICROSCOPIC NOT IND
[2018-08-14 02:48] LABS: CULTURE INDICATED? NO
[2018-08-14 05:25] LABS: ANION GAP 5 mmol/L (5-15); CALCIUM 8.9 mg/dL (8.5-10.1); CHLORIDE 109 mmol/L (98-107); CREATININE 0.85 mg/dL (0.55-1.02)
[2018-08-14 05:28] LABS: MEAN CORPUSCULAR HEMOGLOBIN 31.8 pg (27.0-34.8); MEAN CORPUSCULAR HGB CONC 32.6 g/dL (32.4-35.8); MEAN CORPUSCULAR VOLUME 97.6 fL (80-100); MEAN PLATELET VOLUME 7.9 fL (7.4-10.4); PLATELET COUNT 258 x10^3/uL (130-400); RED BLOOD COUNT 3.58 x10^6/uL (3.82-5.3); RED CELL DISTRIBUTION WIDTH 17.2 % (9.6-15.2)
[2018-08-14 06:38] LABS: BASOPHILS % (AUTO) 0 % (0-1); EOSINOPHILS # (AUTO) 0.02 x10^3/uL (0-0.4); EOSINOPHILS % (AUTO) 1 % (1-7); LYMPHOCYTES # (AUTO) 0.52 x10^3/uL (1-3.4); LYMPHOCYTES % (AUTO) 12 % (22-44); MD SCAN; MONOCYTES # (AUTO) 0.02 x10^3/uL (0.2-0.8); MONOCYTES % (AUTO) 0 % (2-9); NEUTROPHILS # (AUTO) 3.66 x10^3/uL (1.8-6.8); NEUTROPHILS % (AUTO) 87 % (42-75)
[2018-08-14] MEDS: INSULIN LISPRO 100 UNITS/ML, PEN SQ-INSULIN SCH ×4 (07:00→20:08)
[2018-08-14 07:53] VITALS: BP 132/78
[2018-08-14 13:43] VITALS: BP 108/70
[2018-08-14 19:57] VITALS: BP 106/66
[2018-08-15] MEDS: HEPARIN 5,000 UNITS/ML, 1ML SQ SCH ×3 (00:11→17:20)
[2018-08-15] MEDS: methylPREDNISolone SOD SUCC 40 MG/ML IVPush SCH ×4 (00:11→17:19)
[2018-08-15 04:49] VITALS: BP 110/62
[2018-08-15 05:40] LABS: ANION GAP 4 mmol/L (5-15); CALCIUM 8.3 mg/dL (8.5-10.1); CHLORIDE 109 mmol/L (98-107)
[2018-08-15 05:42] LABS: CREATININE 0.75 mg/dL (0.55-1.02)
[2018-08-15 06:01] LABS: BASOPHILS % (AUTO) 0 % (0-1); EOSINOPHILS # (AUTO) 0.17 x10^3/uL (0-0.4); EOSINOPHILS % (AUTO) 2 % (1-7); LYMPHOCYTES # (AUTO) 0.55 x10^3/uL (1-3.4); LYMPHOCYTES % (AUTO) 7 % (22-44); MD NO; MEAN CORPUSCULAR HEMOGLOBIN 33.3 pg (27.0-34.8); MEAN CORPUSCULAR VOLUME 97.8 fL (80-100); MEAN PLATELET VOLUME 7.4 fL (7.4-10.4); MONOCYTES # (AUTO) 0.14 x10^3/uL (0.2-0.8); MONOCYTES % (AUTO) 2 % (2-9); NEUTROPHILS # (AUTO) 6.82 x10^3/uL (1.8-6.8); NEUTROPHILS % (AUTO) 89 % (42-75); PLATELET COUNT 231 x10^3/uL (130-400); RED BLOOD COUNT 3.13 x10^6/uL (3.82-5.3); RED CELL DISTRIBUTION WIDTH 17.1 % (9.6-15.2)
[2018-08-15 07:45] VITALS: BP 100/63
[2018-08-15] MEDS: INSULIN LISPRO 100 UNITS/ML, PEN SQ-INSULIN SCH ×4 (08:02→20:01)
[2018-08-15] MEDS: LACTATED RINGERS 1,000 ML IV SCH ×2 (08:03→17:21)
[2018-08-15 13:48] VITALS: BP 109/68
[2018-08-15 19:05] VITALS: BP 110/59
[2018-08-16] MEDS: methylPREDNISolone SOD SUCC 40 MG/ML IVPush SCH ×4 (00:49→18:30)
[2018-08-16] MEDS: HEPARIN 5,000 UNITS/ML, 1ML SQ SCH ×3 (00:51→16:46)
[2018-08-16 01:20] VITALS: BP 107/59
[2018-08-16] MEDS: ACETAMINOPHEN 325 MG TABLET PO PRN ×2 (03:16→21:08)
[2018-08-16] MEDS: LACTATED RINGERS 1,000 ML IV SCH ×2 (03:17→15:32)
[2018-08-16 05:12] LABS: BASOPHILS % (AUTO) 0 % (0-1); EOSINOPHILS % (AUTO) 0 % (1-7); LYMPHOCYTES # (AUTO) 0.47 x10^3/uL (1-3.4); LYMPHOCYTES % (AUTO) 7 % (22-44); MD NO; MEAN CORPUSCULAR HGB CONC 33.7 g/dL (32.4-35.8); MEAN CORPUSCULAR VOLUME 97.7 fL (80-100); MEAN PLATELET VOLUME 7.1 fL (7.4-10.4); MONOCYTES # (AUTO) 0.11 x10^3/uL (0.2-0.8); MONOCYTES % (AUTO) 2 % (2-9); NEUTROPHILS # (AUTO) 5.92 x10^3/uL (1.8-6.8); NEUTROPHILS % (AUTO) 91 % (42-75); PLATELET COUNT 217 x10^3/uL (130-400); RED BLOOD COUNT 3.14 x10^6/uL (3.82-5.3); RED CELL DISTRIBUTION WIDTH 17.4 % (9.6-15.2)
[2018-08-16 05:22] LABS: ANION GAP 4 mmol/L (5-15); CALCIUM 8.5 mg/dL (8.5-10.1); CHLORIDE 112 mmol/L (98-107); CREATININE 0.75 mg/dL (0.55-1.02)
[2018-08-16 08:20] VITALS: BP 110/59
[2018-08-16] MEDS: INSULIN LISPRO 100 UNITS/ML, PEN SQ-INSULIN SCH ×4 (08:39→21:08)
[2018-08-16 13:19] VITALS: BP 114/68
[2018-08-16 20:12] VITALS: BP 99/63
[2018-08-17] MEDS: methylPREDNISolone SOD SUCC 40 MG/ML IVPush SCH ×4 (00:39→17:47)
[2018-08-17] MEDS: LACTATED RINGERS 1,000 ML IV SCH ×2 (00:43→08:25)
[2018-08-17] MEDS: HEPARIN 5,000 UNITS/ML, 1ML SQ SCH ×3 (00:47→16:46)
[2018-08-17 02:58] VITALS: BP 123/69
[2018-08-17 06:29] LABS: BASOPHILS # (AUTO) 0.01 x10^3/uL (0-0.1); BASOPHILS % (AUTO) 0 % (0-1); EOSINOPHILS % (AUTO) 0 % (1-7); LYMPHOCYTES # (AUTO) 0.45 x10^3/uL (1-3.4); LYMPHOCYTES % (AUTO) 8 % (22-44); MD NO; MEAN CORPUSCULAR HEMOGLOBIN 33.2 pg (27.0-34.8); MEAN CORPUSCULAR HGB CONC 33.6 g/dL (32.4-35.8); MEAN CORPUSCULAR VOLUME 98.9 fL (80-100); MEAN PLATELET VOLUME 7.8 fL (7.4-10.4); MONOCYTES % (AUTO) 2 % (2-9); NEUTROPHILS # (AUTO) 5.11 x10^3/uL (1.8-6.8); NEUTROPHILS % (AUTO) 90 % (42-75); PLATELET COUNT 207 x10^3/uL (130-400); RED BLOOD COUNT 3.26 x10^6/uL (3.82-5.3); RED CELL DISTRIBUTION WIDTH 17.2 % (9.6-15.2)
[2018-08-17 06:42] LABS: ANION GAP 4 mmol/L (5-15); CALCIUM 8.4 mg/dL (8.5-10.1); CHLORIDE 111 mmol/L (98-107)
[2018-08-17 07:22] VITALS: BP 132/67
[2018-08-17] MEDS: INSULIN LISPRO 100 UNITS/ML, PEN SQ-INSULIN SCH ×4 (08:24→20:01)
[2018-08-17 12:08] VITALS: BP 124/74
[2018-08-17 19:54] VITALS: BP 137/60
[2018-08-18] MEDS: methylPREDNISolone SOD SUCC 40 MG/ML IVPush SCH ×4 (00:18→18:17)
[2018-08-18] MEDS: HEPARIN 5,000 UNITS/ML, 1ML SQ SCH ×3 (00:20→16:39)
[2018-08-18 00:42] VITALS: BP 124/75
[2018-08-18 06:05] LABS: BASOPHILS # (AUTO) 0.01 x10^3/uL (0-0.1); BASOPHILS % (AUTO) 0 % (0-1); EOSINOPHILS % (AUTO) 0 % (1-7); LYMPHOCYTES # (AUTO) 0.46 x10^3/uL (1-3.4); LYMPHOCYTES % (AUTO) 8 % (22-44); MD NO; MEAN CORPUSCULAR HEMOGLOBIN 32.8 pg (27.0-34.8); MEAN CORPUSCULAR HGB CONC 33.1 g/dL (32.4-35.8); MEAN CORPUSCULAR VOLUME 99.1 fL (80-100); MEAN PLATELET VOLUME 7.4 fL (7.4-10.4); MONOCYTES # (AUTO) 0.11 x10^3/uL (0.2-0.8); MONOCYTES % (AUTO) 2 % (2-9); NEUTROPHILS # (AUTO) 4.94 x10^3/uL (1.8-6.8); NEUTROPHILS % (AUTO) 90 % (42-75); PLATELET COUNT 215 x10^3/uL (130-400); RED BLOOD COUNT 3.53 x10^6/uL (3.82-5.3); RED CELL DISTRIBUTION WIDTH 16.9 % (9.6-15.2)
[2018-08-18 06:16] LABS: ANION GAP 3 mmol/L (5-15); CALCIUM 8.3 mg/dL (8.5-10.1); CHLORIDE 111 mmol/L (98-107)
[2018-08-18 07:23] VITALS: BP 127/78
[2018-08-18] MEDS: INSULIN LISPRO 100 UNITS/ML, PEN SQ-INSULIN SCH ×4 (09:16→22:04)
[2018-08-18 13:12] VITALS: BP 109/56
[2018-08-18 19:24] VITALS: BP 108/67
[2018-08-19] MEDS: methylPREDNISolone SOD SUCC 40 MG/ML IVPush SCH ×4 (00:10→20:29)
[2018-08-19] MEDS: HEPARIN 5,000 UNITS/ML, 1ML SQ SCH ×3 (00:11→17:13)
[2018-08-19 01:33] VITALS: BP 122/71
[2018-08-19 07:38] VITALS: BP 126/74
[2018-08-19] MEDS: INSULIN LISPRO 100 UNITS/ML, PEN SQ-INSULIN SCH ×4 (08:18→20:30)
[2018-08-19 13:47] VITALS: BP 136/73
[2018-08-19 19:25] VITALS: BP 138/69
[2018-08-20] MEDS: HEPARIN 5,000 UNITS/ML, 1ML SQ SCH ×3 (00:06→17:03)
[2018-08-20 01:03] VITALS: BP 135/71
[2018-08-20] MEDS: methylPREDNISolone SOD SUCC 40 MG/ML IVPush SCH ×4 (03:36→20:43)
[2018-08-20 07:26] VITALS: BP 139/74
[2018-08-20] MEDS: INSULIN LISPRO 100 UNITS/ML, PEN SQ-INSULIN SCH ×4 (08:19→20:43)
[2018-08-20 13:15] VITALS: BP 134/78
[2018-08-20 18:29] VITALS: BP 128/78
[2018-08-21] MEDS: HEPARIN 5,000 UNITS/ML, 1ML SQ SCH ×3 (00:51→18:04)
[2018-08-21 01:01] VITALS: BP 139/74
[2018-08-21] MEDS: methylPREDNISolone SOD SUCC 40 MG/ML IVPush SCH ×4 (02:54→21:55)
[2018-08-21 06:09] LABS: BASOPHILS % (AUTO) 0 % (0-1); EOSINOPHILS % (AUTO) 0 % (1-7); LYMPHOCYTES # (AUTO) 0.39 x10^3/uL (1-3.4); LYMPHOCYTES % (AUTO) 5 % (22-44); MD NO; MEAN CORPUSCULAR HEMOGLOBIN 32.9 pg (27.0-34.8); MEAN CORPUSCULAR HGB CONC 33.7 g/dL (32.4-35.8); MEAN CORPUSCULAR VOLUME 97.6 fL (80-100); MEAN PLATELET VOLUME 7.5 fL (7.4-10.4); MONOCYTES # (AUTO) 0.23 x10^3/uL (0.2-0.8); MONOCYTES % (AUTO) 3 % (2-9); NEUTROPHILS # (AUTO) 7.46 x10^3/uL (1.8-6.8); NEUTROPHILS % (AUTO) 92 % (42-75); PLATELET COUNT 182 x10^3/uL (130-400); RED BLOOD COUNT 3.45 x10^6/uL (3.82-5.3); RED CELL DISTRIBUTION WIDTH 17.7 % (9.6-15.2)
[2018-08-21 06:21] LABS: ANION GAP 5 mmol/L (5-15); CHLORIDE 108 mmol/L (98-107); CREATININE 0.68 mg/dL (0.55-1.02)
[2018-08-21 07:04] VITALS: BP 132/76
[2018-08-21] MEDS: INSULIN LISPRO 100 UNITS/ML, PEN SQ-INSULIN SCH ×4 (09:23→21:55)
[2018-08-21 12:50] VITALS: BP 127/72
[2018-08-21 19:19] VITALS: BP 111/67
[2018-08-22] MEDS: HEPARIN 5,000 UNITS/ML, 1ML SQ SCH ×3 (00:50→16:34)
[2018-08-22 01:22] VITALS: BP 109/62
[2018-08-22] MEDS: methylPREDNISolone SOD SUCC 40 MG/ML IVPush SCH ×3 (03:07→16:34)
[2018-08-22 06:22] LABS: BASOPHILS % (AUTO) 0 % (0-1); EOSINOPHILS # (AUTO) 0.19 x10^3/uL (0-0.4); EOSINOPHILS % (AUTO) 2 % (1-7); LYMPHOCYTES # (AUTO) 0.33 x10^3/uL (1-3.4); LYMPHOCYTES % (AUTO) 4 % (22-44); MD NO; MEAN CORPUSCULAR HEMOGLOBIN 32.7 pg (27.0-34.8); MEAN CORPUSCULAR HGB CONC 33.1 g/dL (32.4-35.8); MEAN CORPUSCULAR VOLUME 98.9 fL (80-100); MEAN PLATELET VOLUME 7.4 fL (7.4-10.4); MONOCYTES # (AUTO) 0.17 x10^3/uL (0.2-0.8); MONOCYTES % (AUTO) 2 % (2-9); NEUTROPHILS # (AUTO) 7.32 x10^3/uL (1.8-6.8); NEUTROPHILS % (AUTO) 91 % (42-75); PLATELET COUNT 167 x10^3/uL (130-400); RED BLOOD COUNT 3.22 x10^6/uL (3.82-5.3); RED CELL DISTRIBUTION WIDTH 17.3 % (9.6-15.2)
[2018-08-22 06:31] LABS: ANION GAP 5 mmol/L (5-15); CALCIUM 7.8 mg/dL (8.5-10.1); CHLORIDE 110 mmol/L (98-107); CREATININE 0.71 mg/dL (0.55-1.02)
[2018-08-22 07:22] VITALS: BP 112/65
[2018-08-22] MEDS: INSULIN LISPRO 100 UNITS/ML, PEN SQ-INSULIN SCH ×4 (08:16→20:51)
[2018-08-22 13:11] VITALS: BP 118/72
[2018-08-22 19:41] VITALS: BP 125/73
[2018-08-23] MEDS: HEPARIN 5,000 UNITS/ML, 1ML SQ SCH ×3 (01:25→17:36)
[2018-08-23] MEDS: methylPREDNISolone SOD SUCC 40 MG/ML IVPush SCH ×2 (01:26→08:57)
[2018-08-23 03:58] VITALS: BP 152/61
[2018-08-23 05:53] LABS: BASOPHILS # (AUTO) 0.01 x10^3/uL (0-0.1); BASOPHILS % (AUTO) 0 % (0-1); EOSINOPHILS % (AUTO) 0 % (1-7); LYMPHOCYTES % (AUTO) 5 % (22-44); MD NO; MEAN CORPUSCULAR HEMOGLOBIN 32.5 pg (27.0-34.8); MEAN CORPUSCULAR HGB CONC 33.5 g/dL (32.4-35.8); MEAN CORPUSCULAR VOLUME 96.8 fL (80-100); MEAN PLATELET VOLUME 7.4 fL (7.4-10.4); MONOCYTES # (AUTO) 0.26 x10^3/uL (0.2-0.8); MONOCYTES % (AUTO) 3 % (2-9); NEUTROPHILS # (AUTO) 7.23 x10^3/uL (1.8-6.8); NEUTROPHILS % (AUTO) 92 % (42-75); PLATELET COUNT 155 x10^3/uL (130-400); RED BLOOD COUNT 3.39 x10^6/uL (3.82-5.3); RED CELL DISTRIBUTION WIDTH 17.5 % (9.6-15.2)
[2018-08-23 06:00] LABS: ANION GAP 6 mmol/L (5-15); CALCIUM 7.9 mg/dL (8.5-10.1); CHLORIDE 108 mmol/L (98-107); CREATININE 0.71 mg/dL (0.55-1.02)
[2018-08-23 08:16] VITALS: BP 150/72
[2018-08-23] MEDS: INSULIN LISPRO 100 UNITS/ML, PEN SQ-INSULIN SCH ×4 (08:58→20:58)
[2018-08-23 12:57] VITALS: BP 111/63
[2018-08-23] MEDS ORDERED: methylPREDNISolone 4mg DOSE PACK PO ONE (17:30)
[2018-08-23 19:40] VITALS: BP 128/70
[2018-08-24] MEDS: HEPARIN 5,000 UNITS/ML, 1ML SQ SCH ×3 (01:51→17:15)
[2018-08-24 01:56] VITALS: BP 146/73
[2018-08-24] MEDS: INSULIN LISPRO 100 UNITS/ML, PEN SQ-INSULIN SCH ×4 (07:00→20:28)
[2018-08-24 07:50] VITALS: BP 153/74
[2018-08-24 13:50] VITALS: BP 129/80
[2018-08-24 19:10] VITALS: BP 115/67
[2018-08-25 00:55] VITALS: BP 125/75
[2018-08-25] MEDS: HEPARIN 5,000 UNITS/ML, 1ML SQ SCH ×3 (00:57→17:34)
[2018-08-25] MEDS: INSULIN LISPRO 100 UNITS/ML, PEN SQ-INSULIN SCH ×4 (07:00→20:30)
[2018-08-25 07:56] VITALS: BP 148/79
[2018-08-25 13:25] VITALS: BP 140/80
[2018-08-25 18:52] VITALS: BP 113/74
[2018-08-26 01:30] VITALS: BP 115/70
[2018-08-26] MEDS: HEPARIN 5,000 UNITS/ML, 1ML SQ SCH ×3 (01:30→16:09)
[2018-08-26] MEDS: INSULIN LISPRO 100 UNITS/ML, PEN SQ-INSULIN SCH ×4 (08:12→21:20)
[2018-08-26 08:20] VITALS: BP 138/83
[2018-08-26 16:01] VITALS: BP 112/65
[2018-08-26] MEDS ORDERED: ALBUTEROL/IPRATROPIUM 2.5MG/0.5MG, 3 ML NPPB SCH (19:00)
[2018-08-26 19:02] VITALS: BP 115/70
[2018-08-26] MEDS ORDERED: ALBUTEROL/IPRATROPIUM 2.5MG/0.5MG, 3 ML NPPB PRN (22:30)
[2018-08-27 01:10] VITALS: BP 128/69
[2018-08-27] MEDS: HEPARIN 5,000 UNITS/ML, 1ML SQ SCH ×2 (01:33→08:16)
[2018-08-27 07:13] VITALS: BP 125/63
[2018-08-27] MEDS: INSULIN LISPRO 100 UNITS/ML, PEN SQ-INSULIN SCH ×2 (08:15→11:00)
[2018-08-27] MEDS ORDERED: METH4TAB PO ×2 (12:16)
[2018-08-27] MEDS ORDERED: DOCU-131 PO (12:16)
[2018-08-27] MEDS ORDERED: CHOL500050 PO (12:16)
[2018-08-27 13:18] VITALS: BP 127/68
== END 2018-08-27 16:27 | disposition home health service (06) | DRG 190 ==
LOC: ED 17:28 → 4EST 17:32
PROVIDERS: ADMIT Internal Medicine; ATTEND Internal Medicine
DX: J44.1 Chronic obstructive pulmonary disease with (acute) exacerbation (principal); N17.0 Acute kidney failure with tubular necrosis; J96.10 Chronic respiratory failure, unspecified whether with hypoxia or hypercapnia; E78.5 Hyperlipidemia, unspecified; E11.9 Type 2 diabetes mellitus without complications; G47.33 Obstructive sleep apnea (adult) (pediatric); G89.29 Other chronic pain; I10 Essential (primary) hypertension; K21.9 Gastro-esophageal reflux disease without esophagitis; X58.XXXA Exposure to other specified factors, initial encounter; M81.0 Age-related osteoporosis without current pathological fracture; Z66 Do not resuscitate; S82.44 Spiral fracture of shaft of fibula; S82.241 Displaced spiral fracture of shaft of right tibia; Z98.51 Tubal ligation status; Z99.81 Dependence on supplemental oxygen; Z88.8 Allergy status to other drugs, medicaments and biological substances; Z82.49 Family history of ischemic heart disease and other diseases of the circulatory system; Y93.89 Activity, other specified; Y92.89 Other specified places as the place of occurrence of the external cause; Z75.1 Person awaiting admission to adequate facility elsewhere
CPT/HCPCS: 36415; 71045; 80048; 80053; 81003; 82306; 82962; 83036; 83605; 83880; 84439; 84443; 84484; 85025; 85610; 85651; 85730; 87040; 93005; 94660; 99285; G0378; J1644; J7509; J1815; J2920; J7120

== ENCOUNTER → 2018-11-27 | Outpatient (CLI) | payer MEDICARE, OTHER ==
[~2018-11-27] MED LIST changes: +CHOL500050 PO; +METH4TAB PO
[2018-11-27 12:31] LABS: BASOPHILS # (AUTO) 0.02 x10^3/uL (0-0.1); BASOPHILS % (AUTO) 0 % (0-1); EOSINOPHILS # (AUTO) 0.11 x10^3/uL (0-0.4); EOSINOPHILS % (AUTO) 1 % (1-7); LYMPHOCYTES # (AUTO) 2.56 x10^3/uL (1-3.4); LYMPHOCYTES % (AUTO) 27 % (22-44); MD NO; MEAN CORPUSCULAR HEMOGLOBIN 30.8 pg (27.0-34.8); MEAN CORPUSCULAR HGB CONC 32.5 g/dL (32.4-35.8); MEAN CORPUSCULAR VOLUME 94.8 fL (80-100); MONOCYTES # (AUTO) 0.68 x10^3/uL (0.2-0.8); MONOCYTES % (AUTO) 7 % (2-9); NEUTROPHILS # (AUTO) 6.05 x10^3/uL (1.8-6.8); NEUTROPHILS % (AUTO) 64 % (42-75); PLATELET COUNT 252 x10^3/uL (130-400); RED BLOOD COUNT 4.62 x10^6/uL (3.82-5.3); RED CELL DISTRIBUTION WIDTH 16.1 % (9.6-15.2)
[2018-11-27 12:38] LABS: CALCIUM 9.8 mg/dL (8.5-10.1); CHLORIDE 106 mmol/L (98-107)
[2018-11-27 12:46] LABS: HEMOGLOBIN A1C 5.4 % (4.2-6.3)
[2018-11-27 13:06] LABS: ALANINE AMINOTRANSFERASE 13 U/L (12-78); ALBUMIN 3.6 g/dL (3.4-5.0); ALKALINE PHOSPHATASE 109 U/L (45-117); ANION GAP 8 mmol/L (5-15); BILIRUBIN,TOTAL 0.3 mg/dL (0.2-1.0); CHOL/HDL RATIO 3.3; CHOLESTEROL, TOTAL 194 mg/dL (140-239); CREATININE 0.76 mg/dL (0.55-1.02); FOLATE LEVEL 14.5 ng/mL (3.1-17.5); FREE T4 (FREE THYROXINE) 1.24 ng/dL (0.76-1.46); HDL CHOL % 30 % (28-40); HDL CHOLESTEROL (DIRECT) 58 mg/dL (40-60); LDL CHOLESTEROL,CALCULATED 101 mg/dL (54-169); LDL/HDL RATIO 1.7 (0.5-3.0); TOTAL PROTEIN 8.1 g/dL (6.4-8.2); TRIGLYCERIDES 173 mg/dL (50-200); VLDL CHOLESTEROL 35 mg/dL (0-25)
== END | disposition home or self-care (01) ==
LOC: CFH 10:46
PROVIDERS: ATTEND Nurse Practitioner Primary Care
DX: E78.2 Mixed hyperlipidemia (principal); E61.1 Iron deficiency; E55.9 Vitamin D deficiency, unspecified; R53.83 Other fatigue; E88.81 Metabolic syndrome and other insulin resistance; E79.9 Disorder of purine and pyrimidine metabolism, unspecified; R01.1 Cardiac murmur, unspecified; F06.31 Mood disorder due to known physiological condition with depressive features; R09.02 Hypoxemia; Z79.52 Long term (current) use of systemic steroids; Z79.899 Other long term (current) drug therapy
CPT/HCPCS: 36415; 80053; 80061; 82306; 82607; 82746; 83036; 84207; 84425; 84439; 84443; 84481; 85025